=== PATIENT | male | born 2000 | race Two or more races ===

== ENCOUNTER 2025-04-27 20:36 | Emergency (ER) | payer OTHER ==
[~2025-04-27] VITALS: Ht 165.1 cm; Wt 78.5 kg
[2025-04-27 20:51] VITALS: BP 132/76; O2SAT 99
[2025-04-27] MEDS ORDERED: ACETAMINOPHEN 500 MG GEL..CAP PO ONE ×2 (22:15→22:26)
[2025-04-27] MEDS ORDERED: METHYLPREDNISOLONE SOD SUCC 125 MG VIAL IV ONE (22:15)
[2025-04-27] MEDS ORDERED: CETIRIZINE HCL 10 MG TABLET PO ONE ×2 (22:15→22:25)
[2025-04-27] MEDS ORDERED: HYDROCODONE/CHLORPHEN P-STIREX 5 ML ML PO ONE (22:15)
[2025-04-27] MEDS ORDERED: METHYLPREDNISOLONE SOD SUCC 125 MG VIAL ONE (22:26)
[2025-04-27 23:15] LABS: BASO % 0.4 % (0.1-1.2); EOS # 0.18 (0.04-0.54); EOS % 1.7 % (0.7-7.0); LYMPH # 2.29 (1.18-3.74); LYMPH % 21.5 % (19.3-53.1); MEAN PLATELET VOLUME 9.80 fl (9.4-12.4); MONO # 1.03 (0.24-0.82); MONO % 9.7 % (4.7-12.5); NEUT # 7.10 (1.56-6.13); NEUT % 66.5 % (34.0-71.1); RED CELL DISTRIBUTION WIDTH 12.8 % (11.6-14.4)
[2025-04-28 00:10] LABS: COVID-19 AG NEGATIVE (NEGATIVE)
[2025-04-28] MEDS ORDERED: ACETAMINOPHEN500 M2 PO (00:47)
[2025-04-28] MEDS ORDERED: ZITHROMAX500 MG PO (00:47)
[2025-04-28] MEDS ORDERED: ALLER-TEC10 MG PO (00:47)
[2025-04-28] MEDS ORDERED: MUCINEX DM ER1 EAC1 PO (00:47)
== END 2025-04-28 01:04 | disposition home or self-care (01) ==
LOC: ER 20:37
PROVIDERS: General Practice
DX: J06.9 Acute upper respiratory infection, unspecified (principal); B34.9 Viral infection, unspecified; J45.909 Unspecified asthma, uncomplicated; Z20.822 Contact with and (suspected) exposure to COVID-19